=== PATIENT | male | born 1985 | race African-American/Black ===

== ENCOUNTER 2022-12-03 08:21 | Outpatient (CLI) | payer OTHER ==
[2022-12-03 08:59] LABS: #Eosinphils 0.1 10x3/uL (0.0-0.5); #Monocytes 0.5 10x3/uL (0.0-1.1); #Neutrophils 2.8 10x3/uL (1.5-8.4); %Basophils 0.5 % (0.0-2.0); %Eosinophils 2.1 % (0.0-6.0); %Lymphocytes 44.2 % (18.0-47.0); %Monocytes 8.3 % (0.0-10.0); %Neutrophils 44.9 % (40.0-75.0); Mean Corpuscular HGB CONC 33.7 g/dL (32.0-36.0); Mean Corpuscular Hemoglobin 31.2 pg (27.0-33.0); Mean Corpuscular Volume 92.7 fl (81.2-95.1); Mean Platelet Volume 9.9 fl (7.4-10.4); Platelet Count 288 10x3/uL (150-450); RBC Distribution Width 11.6 % (11.5-14.5); Red Blood Cell (RBC) Count 4.49 10x6/uL (4.32-5.72); White Blood Cell (WBC) Count 6.2 10x3/uL (3.5-10.5)
== END 2022-12-03 08:22 | disposition home or self-care (01) ==
LOC: LABBT 08:21
PROVIDERS: ATTEND Orthopaedic Surgery Hand Surgery
DX: Z01.812 Encounter for preprocedural laboratory examination (principal); M67.431 Ganglion, right wrist
CPT/HCPCS: 85025

== ENCOUNTER 2022-12-07 05:46 | Day surgery (SDC) | payer OTHER ==
[2022-12-03 08:41] VITALS: BMI 37.6
[2022-12-07] MEDS ORDERED: Bupivacaine PF 0.5% 30 ML VIAL ONE (06:23)
[2022-12-07] MEDS ORDERED: Bacitracin Zinc Ointment 30 gm TUBE ONE (06:24)
[2022-12-07] MEDS ORDERED: fentaNYL PF 100 MCG/2 ML SYRINGE ONE (06:34)
[2022-12-07] MEDS ORDERED: Sodium Chloride 0.9% 100 ML ONE (07:02)
[2022-12-07] MEDS ORDERED: CEFAZOLIN 2 GM VIAL ONE (07:02)
[2022-12-07] MEDS ORDERED: PROPOFOL 200 MG/20 ML VIAL ONE (07:22)
[2022-12-07] MEDS ORDERED: Lidocaine 1% PF 5 ML VIAL ONE (07:22)
[2022-12-07] MEDS ORDERED: Ketorolac Tromethamine 30 MG/ML VIAL ONE ×2 (07:22→08:52)
[2022-12-07] MEDS ORDERED: Ondansetron PF 4 MG/2 ML Vial ONE (07:22)
[2022-12-07] MEDS ORDERED: Dexamethasone 20 MG/5 ML VIAL ONE (07:22)
[2022-12-07] MEDS ORDERED: HYDROcodone/Acetaminophen 5/325 mg Tablet ONE (10:08)
== END 2022-12-07 10:41 | disposition home or self-care (01) ==
LOC: SDC 05:46
PROVIDERS: ATTEND Orthopaedic Surgery Hand Surgery
PROC: 0LB50ZZ Excision of Right Lower Arm and Wrist Tendon, Open Approach (ICD-10-PCS; principal; 2022-12-07)
DX: M67.431 Ganglion, right wrist (principal); Z79.899 Other long term (current) drug therapy
CPT/HCPCS: 88304; J1100; J1885; J2405; J2704; J3490; S0020